=== PATIENT | female | born 1945 | race Hispanic/Latino ===

== ENCOUNTER 2017-10-21 07:12 | Day surgery (SDC) | payer MEDICARE, BC ==
[2016-05-30 14:57] VITALS: BMI 22.2
[2017-10-21 07:32] VITALS: O2SAT 99
[2017-10-21] MEDS ORDERED: Propofol 10 mg/ml Inj (20 ML) ONE (07:53)
[2017-10-21] MEDS ORDERED: Lidocaine 1% Inj (20ml) ONE (07:53)
[2017-10-21] MEDS ORDERED: Midazolam 2 MG/2 ML VIAL ONE (07:53)
[2017-10-21] MEDS ORDERED: Sodium Chloride 0.9% 1,000 ML IV SCH (09:30)
[2017-10-21 10:33] VITALS: BP 126/65; PULSE 61; RESP 15; TEMP 97.8
== END 2017-10-21 11:17 | disposition home or self-care (01) ==
LOC: ENDO 07:12
PROVIDERS: ATTEND Internal Medicine Gastroenterology
DX: K90.0 Celiac disease (principal); K29.50 Unspecified chronic gastritis without bleeding; I10 Essential (primary) hypertension; E11.9 Type 2 diabetes mellitus without complications; Z79.4 Long term (current) use of insulin; Z87.19 Personal history of other diseases of the digestive system
CPT/HCPCS: 43239; 82948; 88305; 88312; 88342; J2250; J2704; J7040 ×2